=== PATIENT | male | born 1990 | race Hispanic/Latino ===

== ENCOUNTER 2025-03-18 19:33 | Emergency (ER) | payer OTHER ==
[~2025-03-18] VITALS: Ht 170.2 cm; Wt 81.8 kg
[~2025-03-18 19:33] MED LIST: ACET-683 PO; ACET-907 PO; DOXY100T PO; IBUP-1022 PO; PETR3.5O OS; PRED10TA2 PO; PRED20TA PO; REFR0.5D8 OS; VALA1TAB5 PO; VALA500T5 PO
[2025-03-18 22:35] VITALS: BP 117/66; TEMP 97.7; O2SAT 100
== END 2025-03-18 23:14 | disposition left against medical advice (07) ==
LOC: M ED 19:33
DX: Z53.21 Procedure and treatment not carried out due to patient leaving prior to being seen by health care provider (principal)

== ENCOUNTER → 2025-05-16 | Outpatient (CLI) | payer OTHER ==
[~2025-05-16] MED LIST changes: -IBUP-1022 PO; +IBUP600T42 PO
[2025-05-16 14:49] LABS: BASO # 0.0 10^3/uL (0.0-0.2); BASO % 0.4 % (0.0-1.0); EOS # 0.1 10^3/uL (0.0-0.5); EOS % 0.6 % (0.0-3.0); LYMPH # 2.6 10^3/uL (1.5-5.0); LYMPH % 33.7 % (24.0-44.0); MONO # 0.6 10^3/uL (0.0-0.8); MONO % 7.7 % (2.0-8.0); NEUTROPHILS # 4.5 10^3/uL (1.5-8.5); NEUTROPHILS % 57.3 % (36.0-66.0); PLATELET COUNT, AUTOMATED 271 10^3/uL (150-450)
[2025-05-16 14:57] LABS: ERYTHROCYTE SEDIMENTATION RATE 7 mm/hr (0-15)
== END ==
LOC: M PLALAB 10:09
PROVIDERS: ATTEND Internal Medicine Infectious Disease
DX: A69.20 Lyme disease, unspecified (principal)